=== PATIENT | male | born 1955 | race Caucasian/White ===

== ENCOUNTER 2023-05-04 15:48 | Emergency (ER) | payer BC, SELFPAY ==
[2023-05-04 15:57] VITALS: BP 156/88; PULSE 57; RESP 16; TEMP 36.7; O2SAT 98; BMI 23.0
[2023-05-04 16:37] LABS: Fecal Occult Blood* Positive (Negative)
--- NOTE | 2023-05-04 16:42 | ED.GENADULT ---
HPI - General Adult General Date Seen: 05/04/23 Chief complaint: Urogenital Problems, Male Stated complaint: blood in urine Time Seen by Provider: 05/04/23 16:03 Source: patient Mode of arrival: ambulatory Limitations: no limitations History of Present Illness HPI narrative: Patient is a 67-year-old male with known prostatic hypertrophy who presents for hematuria and possible blood in the stool. He says yesterday after run he noted that his urine was bloody. He says this has happened once a couple of years ago, seen by Urology and had a cystoscopy which was unremarkable. He has been fine since then. He is not on any anticoagulation. Urine has gradually improved and is less bloody in appearance but he says he has had 2 bowel movements today which look like they might have some blood in them. He had a colonoscopy a couple of years ago and says that was unremarkable with the exception diverticulosis. He has not had significant abdominal pain. Perhaps a little bit of urinary frequency but no urgency or dysuria. No fevers. No unexplained weight loss. Related Data Home Medications Medication Instructions Recorded Confirmed atorvastatin 80 mg tablet 80 mg PO DAILY 01/07/23 01/07/23 Allergies Allergy/AdvReac Type Severity Reaction Status Date / Time No Known Drug Allergies Allergy Verified 05/04/23 15:57 Review of Systems Status of ROS: Reports: 10 or more systems reviewed and unremarkable except as noted in History and below [facility] Medical History Bee sting ?T63.441A - Toxic effect of venom of bees, accidental (unintentional), initial encounter (ICD-10) Social History Smoking Status: Never smoker How often do you have a drink containing alcohol: monthly or less AUDIT-C Alcohol total score: 1 Non-prescribed substance use: denies use service: No Exam Narrative: Exam Narrative: Vital signs as noted above. In general, an alert, well-appearing patient. Head: Normocephalic, atraumatic. Eyes: Pupils are equal reactive. Extraocular movements are full. Conjunctivae are normal. ENT: Mucous membranes are moist. Neck: Supple without lymphadenopathy. Heart: Regular rate and rhythm. No murmur or rub. Lungs: Clear bilaterally. No increased work of breathing, crackles or wheezes. Abdomen: Soft and nontender. No organomegaly. Rectal: Small external hemorrhoids. Stool is brown without obvious blood. Extremities: Well perfused. No edema. No calf tenderness. Pulses intact. Neurologic: Patient is alert and oriented to person and place. Speech is fluent. Face is symmetric. Moves all extremities equally. Affect: Normal. Skin: Warm and dry. Well perfused. Const: Vital Signs, click to edit/add: Vital Signs - 24 hr 05/04/23 15:57 Temperature 98.0 F Pulse Rate [Right Pulse Oximeter] 57 L Respiratory Rate 16 Blood Pressure [Ri ght Upper Arm] 156/88 H Pulse Oximetry 98 Oxygen Delivery Me thod Room Air Course Course ED Course: Fecal occult blood was positive, but hemoglobin is normal at 14.5. Remainder of his CBC is likewise normal, BUN is 23, creatinine is 1, electrolytes normal. UA is actually negative here today without any red cells or white cells. Reviewed this with him. I would like him to follow up with primary care, perhaps recheck a urine and see if he has any blood in it at that time. If so, referral to Urology would be reasonable. He had a colonoscopy a couple of years ago but with blood in the stool may be reasonable to repeat that. In the absence of any significant abdominal pain or tenderness, and with a negative UA, I do not think imaging is warranted today. Discussed reasons to return such as urinary retention, significant rectal bleeding. Vital Signs Vital signs: Initial Vital Signs Temperature 98.0 F 05/04/23 15:57 Temperature Source Temporal Artery Scan 05/04/23 15:57 Pulse Rate 57 L 05/04/23 15:57 Pulse Rhythm Regular 05/04/23 15:57 Pulse Strength 3+ Normal 05/04/23 15:57 Respiratory Rate 16 05/04/23 15:57 Blood Pressure 156/88 H 05/04/23 15:57 Blood Pressure Mean 110 H 05/04/23 15:57 Blood Pressure Position Sitting 05/04/23 15:57 Pulse Oximetry 98 05/04/23 15:57 Oxygen Delivery Method Room Air 05/04/23 15:57 Vital Signs Temperature 98.0 F 05/04/23 15:57 Pulse Rate 57 L 05/04/23 15:57 Respiratory Rate 16 05/04/23 15:57 Blood Pressure 156/88 H 05/04/23 15:57 Pulse Oximetry 98 05/04/23 15:57 Oxygen Delivery Method Room Air 05/04/23 15:57 Temperature 98.0 F 05/04/23 15:57 Pulse Rate 57 L 05/04/23 15:57 Respiratory Rate 16 05/04/23 15:57 Blood Pressure 156/88 H 05/04/23 15:57 Pulse Oximetry 98 05/04/23 15:57 Oxygen Delivery Method Room Air 05/04/23 15:57 Medical Decision Making Lab Data Labs: Lab Results 05/04/23 05/04/23 05/04/23 Range/Units 16:20 16:44 17:26 WBC 4.98 (4.50-11.00) K/uL RBC 4.59 (4.30-5.90) m/uL Hgb 14.5 (13.5-17.5) gm/dL Hct 44.4 (37.0-53.0) % MCV 97 (80-100) fL MCH 32 (26-34) pg MCHC 33 (32-36) gm/dL RDW Coeff of Jacqui 13.0 (11.5-15.5) % Plt Count 172 (140-440) K/uL Neut % (Auto) 62.1 (42.0-72.0) % Lymph % (Auto) 26.1 (20-44) % Gaines % (Auto) 8.2 (0.0-11.0) % Eos % (Auto) 3.2 (0.0-7.0) % Baso % (Auto) 0.4 (0.0-3.0) % Neut # (Auto) 3.09 (1.7-7.0) K/uL Lymph # (Auto) 1.30 (0.90-2.90) K/uL Gaines # (Auto) 0.40 (0.00-0.90) K/UL Eos # (Auto) 0.16 (0.00-0.50) K/uL Baso # (Auto) 0.02 (0.00-0.30) K/uL Abs Immat Gran (auto) 0.00 (0.00-0.30) K/uL Imm/Tot Granulo (auto) 0.0 % Sodium 143 (135-149) mmol/L Potassium 4.1 (3.6-5.1) mmol/L Chloride 107 (96-114) mmol/L Carbon Dioxide 31 (20-32) mmol/L Anion Gap 5 L (7-15) mEq/L BUN 23 (7-30) mg/dL Creatinine 1.0 (0.5-1.5) mg/dL Estimated Creat Clear 74.59 Estimated GFR 83 ml/min Glucose 91 (60-115) mg/dL Calcium 9.2 (8.4-10.6) mg/dL Urine Color Yellow (Yellow) Urine Appearance Clear (Clear) Urine pH 5.5 (5.0-8.5) Ur Specific Buchanan >= 1.030 (1.000-1.030) Urine Protein Negative (Negative) Urine Glucose (UA) Negative (Negative) Urine Ketones Negative (Negative) Urine Blood Negative (Negative) Urine Nitrite Negative (Negative) Urine Bilirubin Negative (Negative) Urine Urobilinogen 1.0 (0.2-1.0) Ur Leukocyte Esterase Negative (Negative) Urine RBC 0-2 (0-2) Urine WBC 0-2 (0-5) Ur Squamous Epith Cells Few (None-Few) Calcium Oxalate Crystal Few A (None) Urine Bacteria None (None) Stool Occult Blood Positive (Negative) Discharge Plan Discharge Clinical Impression: Hematuria, Blood in stool Patient Disposition: Home, Self-Care Condition: Improved Instructions: Rectal Bleeding (ED), Hematuria (ED) Additional Instructions: For inability to void or for significant rectal bleeding, return to the ER. Otherwise, follow-up with your primary care doctor to discuss further evaluation, including possible referral to Urology and/or repeat colonoscopy. Prescriptions: No Action atorvastatin 80 mg tablet 80 mg PO DAILY Follow Up/Referrals: Hari Hunter MD [Primary Care Provider] - Stand Alone Forms: [employer] Info Instructions
[2023-05-04 16:50] LABS: Basophils Absolute Auto 0.02 K/uL (0.00-0.30); Basophils Percent Auto 0.4 % (0.0-3.0); Eosinophils Absolute Auto 0.16 K/uL (0.00-0.50); Eosinophils Percent Auto 3.2 % (0.0-7.0); Hematocrit 44.4 % (37.0-53.0); Hemoglobin* 14.5 gm/dL (13.5-17.5); Lymphocytes Percent Auto 26.1 % (20-44); Mean Corpuscular HGB Conc 33 gm/dL (32-36); Mean Corpuscular Hemoglobin 32 pg (26-34); Mean Corpuscular Volume 97 fL (80-100); Monocytes Percent Auto 8.2 % (0.0-11.0); Neutrophils Absolute Auto 3.09 K/uL (1.7-7.0); Neutrophils Percent Auto 62.1 % (42.0-72.0); Platelet Count* 172 K/uL (140-440); Red Blood Count 4.59 m/uL (4.30-5.90); White Blood Count* 4.98 K/uL (4.50-11.00)
[2023-05-04 17:04] LABS: Chloride* 107 mmol/L (96-114); Potassium* 4.1 mmol/L (3.6-5.1); Slide Review Reflex No; Sodium* 143 mmol/L (135-149)
[2023-05-04 17:07] LABS: Anion Gap 5 mEq/L (7-15); Blood Urea Nitrogen* 23 mg/dL (7-30); Carbon Dioxide* 31 mmol/L (20-32); Est. Creatinine Clearance* 74.59; Estimated Glomerular Filt Rate 83 ml/min
[2023-05-04 17:08] LABS: Calcium* 9.2 mg/dL (8.4-10.6); Glucose* 91 mg/dL (60-115)
[2023-05-04 17:31] LABS: Appearance Urine Clear (Clear); Bilirubin Urine Negative (Negative); Blood Urine Negative (Negative); Glucose Urine Negative (Negative); Ketones Urine Negative (Negative); Leukocyte Esterase Urine Negative (Negative); Nitrite Urine Negative (Negative); Protein Urine Negative (Negative); Specific Gravity Urine >= 1.030 (1.000-1.030); pH Urine 5.5 (5.0-8.5)
[2023-05-04 17:32] LABS: Color Urine Yellow (Yellow)
[2023-05-04 17:55] LABS: Calcium Oxalate Crystals Urine Few; RBC Urine 0-2 (0-2); Squamous Epithelial Cell Urine Few (None-Few); WBC Urine 0-2 (0-5)
== END 2023-05-04 18:57 | disposition home or self-care (01) ==
PROVIDERS: Emergency Provider Emergency Medicine; PCP Family Medicine
DX: R31.9 Hematuria, unspecified (principal); K92.1 Melena
CPT/HCPCS: 36415; 80048; 81001; 82270; 85025; 99283; 99284

== ENCOUNTER 2023-05-13 17:18 | Emergency (ER) | payer BC, SELFPAY ==
[2023-05-13 17:21] VITALS: BP 143/83; PULSE 74; RESP 18; TEMP 37.1; O2SAT 98; BMI 23.0
--- NOTE | 2023-05-13 17:52 | CRLHL7_ITS ---
For Patients: As a result of the Century Cures Act, medical imaging exams and procedure reports are released immediately into your electronic medical record. You may view this report before your referring provider. If you have questions, please contact your health care provider. INDICATION: Chest pain. TECHNIQUE: PA and lateral chest x-ray. COMPARISON: June 18, 2018. FINDINGS: Clear lungs. Normal heart size and pulmonary vascularity. Normal included skeleton. Again noted is a tiny punctate metallic like foreign body in the upper anterior chest likely in the anterior chest wall above the manubrium of the sternum seen previously. IMPRESSION : Stable and negative two view chest x-ray. Stable tiny radiodense foreign body as described. Dictated by Master Cortes MD @ 05/13/2023 6:46:19 PM (Electronically Signed)
--- NOTE | 2023-05-13 18:21 | ED.GENADULT ---
HPI - General Adult General Date Seen: 05/13/23 Chief complaint: Unspecified Complaint, Adult Stated complaint: heart event Time Seen by Provider: 05/13/23 17:43 Source: patient Mode of arrival: ambulatory Limitations: no limitations History of Present Illness HPI narrative: Patient is 67-year-old male with a history of coronary artery disease previous stent placement 3 years ago presented emergency department for hematuria, hematochezia, dizziness, and diaphoresis. He states today about 430 he had about 10-15 minutes an episode of dizziness and diaphoresis after he took a shower. Symptoms have gone away completely. He had no chest pain throughout this episode. He is feels back to normal at this time. He was concerned because last some he had the symptoms he had an TX and had 2 stents placed. He was also concerned because his nose blood in his stool in urine for the past couple weeks. He was seen last week for the blood in the stool and was discharged home. Follow up with his primary care provider yesterday any says he a large amount all lab work done that was all normal. He also notes blood in the urine also states even 7 miles a day. He has noticed blood in the urine before has been going on for few weeks. He has had a procedure in the past check for causes of the blood. Denies fevers, chills, chest pain, shortness of breath, weakness, numbness, headache, abdominal pain. Related Data Home Medications Medication Instructions Recorded Confirmed atorvastatin 80 mg tablet 80 mg PO DAILY 01/07/23 05/13/23 Allergies Allergy/AdvReac Type Severity Reaction Status Date / Time No Known Drug Allergies Allergy Verified 05/04/23 15:57 Review of Systems Status of ROS: Reports: 10 or more systems reviewed and unremarkable except as noted in History and below [facility] Medical History Bee sting ?T63.441A - Toxic effect of venom of bees, accidental (unintentional), initial encounter (ICD-10) Social History Smoking Status: Never smoker How often do you have a drink containing alcohol: monthly or less AUDIT-C Alcohol total score: 1 Non-prescribed substance use: denies use service: No Exam Narrative: Exam Narrative: Const: Well-nourished, Well-developed, in no distress Eyes: PERRL, no conjunctival injection, and symmetrical lids HENT: Atraumatic external nose and ears. Moist mucous membranes. Neck: Symmetric, trachea midline, No thyromegaly. CVS: RRR, No murmurs or gallops. Peripheral pulses 2+ and equal in all extremities RESP: Unlabored respiratory effort. Clear to auscultation bilaterally. GI: Nontender/Nondistended, No rebound or guarding. MSK:Extremities w/o deformity, Normal Active ROM Skin: Warm, Dry. No rashes or lesions. Neuro: Normal Muscle tone, No focal neurological deficits. Psych: Awake, Alert, & Oriented x3. Appropriate mood and affect. Const: Vital Signs, click to edit/add: Vital Signs - 24 hr 05/13/23 17:21 05/13/23 20:15 Temperature 98.7 F Pulse Rate [Right Pulse Oximeter] 74 72 Respiratory Rate 18 18 Blood Pressure [Ri ght Upper Arm] 143/83 H 138/74 Pulse Oximetry 98 96 Oxygen Delivery Me thod Room Air Room Air Course Vital Signs Vital signs: Initial Vital Signs Temperature 98.7 F 05/13/23 17:21 Temperature Source Temporal Artery Scan 05/13/23 17:21 Pulse Rate 74 05/13/23 17:21 Respiratory Rate 18 05/13/23 17:21 Blood Pressure 143/83 H 05/13/23 17:21 Blood Pressure Mean 103 05/13/23 17:21 Blood Pressure Position Sitting 05/13/23 17:21 Pulse Oximetry 98 05/13/23 17:21 Oxygen Delivery Method Room Air 05/13/23 17:21 Vital Signs Temperature 98.7 F 05/13/23 17:21 Pulse Rate 74 05/13/23 17:21 Respiratory Rate 18 05/13/23 17:21 Blood Pressure 143/83 H 05/13/23 17:21 Pulse Oximetry 98 05/13/23 17:21 Oxygen Delivery Method Room Air 05/13/23 17:21 Temperature 98.7 F 05/13/23 17:21 Pulse Rate 72 05/13/23 20:15 Respiratory Rate 18 05/13/23 20:15 Blood Pressure 138/74 05/13/23 20:15 Pulse Oximetry 96 05/13/23 20:15 Oxygen Delivery Method Room Air 05/13/23 20:15 Medications Administered Medications: Discontinued Medications Generic Name Dose Route Start Last Admin Trade Name Kailee PRN Reason Stop Dose Admin Sodium Chloride 1,000 mls @ 1,000 mls/hr 05/13/23 20:00 05/13/23 20:09 0.9 % Sodium Chloride 1000 Ml IV 05/13/23 20:59 Infused .Q1H GUEVARA Infusion Medical Decision Making MDM Narrative Medical decision making narrative: Patient is 67-year-old male presenting for what sounds to be a near syncopal episode. He describes it is exactly like his previous heart attack so he came to be evaluated. Symptoms last about 10-15 minutes and now he feels completely back to normal. States previously these were exactly the same he had no chest pain either. We will do cardiac workup on him including CBC, troponin, CMP, chest x-ray. We also ordered COVID/flu/RSV. He is not short of breath and is very unlikely to be PE related. Seems unlikely to be normal thorax or pneumonia. He does not appear to be dehydrated and has good vital signs. He was fully awake and unlikely to be seizure related. Of note she is getting a CT scan for his intermittent hematuria and 1 episode of hematochezia. He appears very anxious about this. He does run 7 miles 3 days a week and this could be what is causing the hematuria. I do not believe is important to further evaluate this as he has already seen his primary care provider for it and was seen here a week ago for the same symptoms. CBC, CMP, troponin, echo was as flu/RSV all showed no concerning findings. His sodium is mildly low at 132 was very unlikely because the symptoms. Considering there is concerned about cardiac event we will repeat the troponin. When I came back it was also negative. Chest x-ray showed no acute abnormalities. His heart score at this time is 3. I spoke to him he states he has not seen a inflatable buildings laminator for a long time and I informed him considering his history with the stent placement he should really see his inflatable buildings laminator again. I also performed a follow-up with his primary care provider. He states he understands and agrees with this plan. Lab Data Labs: Lab Results 05/13/23 05/13/23 05/13/23 Range/Units 17:52 18:00 20:23 WBC 6.12 (4.50-11.00) K/uL RBC 4.94 (4.30-5.90) m/uL Hgb 15.5 (13.5-17.5) gm/dL Hct 47.8 (37.0-53.0) % MCV 97 (80-100) fL MCH 31 (26-34) pg MCHC 32 (32-36) gm/dL RDW Coeff of Jacqui 13.1 (11.5-15.5) % Plt Count 145 (140-440) K/uL Neut % (Auto) 91.0 H (42.0-72.0) % Lymph % (Auto) 3.9 L (20-44) % Treasure % (Auto) 3.8 (0.0-11.0) % Eos % (Auto) 1.0 (0.0-7.0) % Baso % (Auto) 0.3 (0.0-3.0) % Neut # (Auto) 5.60 (1.7-7.0) K/uL Lymph # (Auto) 0.20 L (0.90-2.90) K/uL Treasure # (Auto) 0.20 (0.00-0.90) K/UL Eos # (Auto) 0.06 (0.00-0.50) K/uL Baso # (Auto) 0.02 (0.00-0.30) K/uL Abs Immat Gran (auto) 0.00 (0.00-0.30) K/uL Imm/Tot Granulo (auto) 0.0 % Sodium 132 L (135-149) mmol/L Potassium 4.0 (3.6-5.1) mmol/L Chloride 103 (96-114) mmol/L Carbon Dioxide 25 (20-32) mmol/L Anion Gap 4 L (7-15) mEq/L BUN 19 (7-30) mg/dL Creatinine 0.9 (0.5-1.5) mg/dL Estimated Creat Clear 74.59 Estimated GFR 94 ml/min Glucose 125 H (60-115) mg/dL Calcium 9.3 (8.4-10.6) mg/dL Total Bilirubin 1.3 (0.1-1.5) mg/dL AST 30 (12-35) U/L ALT 26 (4-50) U/L Alkaline Phosphatase 62 (40-150) U/L Troponin I < 0.01 L < 0.01 L (0.01-0.04) ng/mL Total Protein 7.5 (6.0-8.3) g/dL Albumin 4.3 (3.3-5.0) g/dL SARS-CoV-2 (PCR) Negative SARS-CoV-2 (Negative) Influenza Type A (PCR) Negative PCR FLU A (Negative) Influenza Type B (PCR) Negative PCR FLU B (Negative) RSV (PCR) Negative PCR RSV (Negative) Imaging Data Chest x-ray: Radiologist's impression: Stable and negative two view chest x-ray. Stable tiny radiodense foreign body as described. Dictated by Master Cortes MD @ 05/13/2023 6:46:19 PM ECG Data Attestation: I personally reviewed and interpreted this ECG as follows: Prior ECG tracings: not available for review Interpretation: Normal sinus rhythm the rate 68 beats per minute, normal intervals, normal axis, no ST or T-wave abnormalities. Discharge Plan Discharge Clinical Impression: Near syncope Patient Disposition: Home, Self-Care Condition: Stable Instructions: Near Syncope (ED) Additional Instructions: Follow-up with the inflatable buildings laminator for your near syncopal event. He follow-up with the GI specialist for your blood in your stool. Return to emergency department for new or worsening symptoms Prescriptions: No Action atorvastatin 80 mg tablet 80 mg PO DAILY Follow Up/Referrals: Hari Hunter MD [Primary Care Provider] - Stand Alone Forms: [employer] Info Instructions
[2023-05-13 18:23] LABS: Albumin* 4.3 g/dL (3.3-5.0); Chloride* 103 mmol/L (96-114)
[2023-05-13 18:24] LABS: Sodium* 132 mmol/L (135-149)
[2023-05-13 18:26] LABS: Alkaline Phosphatase* 62 U/L (40-150); Anion Gap 4 mEq/L (7-15); Aspartate Amino Transferase* 30 U/L (12-35); Bilirubin Total* 1.3 mg/dL (0.1-1.5); Blood Urea Nitrogen* 19 mg/dL (7-30); Carbon Dioxide* 25 mmol/L (20-32); Creatinine* 0.9 mg/dL (0.5-1.5); Est. Creatinine Clearance* 74.59; Estimated Glomerular Filt Rate 94 ml/min; Total Protein* 7.5 g/dL (6.0-8.3)
[2023-05-13 18:27] LABS: Alanine Aminotransferase* 26 U/L (4-50); Calcium* 9.3 mg/dL (8.4-10.6); Glucose* 125 mg/dL (60-115)
[2023-05-13 18:39] LABS: Basophils Absolute Auto 0.02 K/uL (0.00-0.30); Basophils Percent Auto 0.3 % (0.0-3.0); Eosinophils Absolute Auto 0.06 K/uL (0.00-0.50); Hematocrit 47.8 % (37.0-53.0); Hemoglobin* 15.5 gm/dL (13.5-17.5); Lymphocytes Percent Auto 3.9 % (20-44); Mean Corpuscular HGB Conc 32 gm/dL (32-36); Mean Corpuscular Hemoglobin 31 pg (26-34); Mean Corpuscular Volume 97 fL (80-100); Monocytes Percent Auto 3.8 % (0.0-11.0); Platelet Count* 145 K/uL (140-440); RDW Coefficient of Variation % 13.1 % (11.5-15.5); Red Blood Count 4.94 m/uL (4.30-5.90); Troponin I* < 0.01 ng/mL (0.01-0.04); White Blood Count* 6.12 K/uL (4.50-11.00)
[2023-05-13 18:42] LABS: Slide Review Reflex No
[2023-05-13 18:58] LABS: PCR FLU A Negative PCR FLU A (Negative); PCR FLU B Negative PCR FLU B (Negative); PCR RSV Negative PCR RSV (Negative)
[2023-05-13 19:00] LABS: SARS PCR* Negative SARS-CoV-2 (Negative)
[2023-05-13] MEDS: 0.9 % SODIUM CHLORIDE 1000 ml 1,000 ML IV (19:00)
[2023-05-13 20:15] VITALS: BP 138/74; PULSE 72; RESP 18; O2SAT 96
[2023-05-13 21:08] LABS: Troponin I* < 0.01 ng/mL (0.01-0.04)
== END 2023-05-13 21:26 | disposition home or self-care (01) ==
PROVIDERS: Emergency Provider Student in an Organized Health Care Education/Training Program; PCP Family Medicine
DX: R55 Syncope and collapse (principal)
CPT/HCPCS: 36415; 71046; 80053; 84484; 85025; 87631; 93005; 96360; 99283; 99284; 99285; J7030